=== PATIENT | male | born 1960 | race Native Hawaiian/Other Pacific Islander ===

== ENCOUNTER 2016-11-23 13:45 | Emergency (ER) | payer OTHER ==
[~2016-11-23] VITALS: Ht 170.2 cm; Wt 99.0 kg
[~2016-11-23 13:45] MED LIST: DARV PO; NAPR550 PO; Z.0.UNKNOWN
[2016-11-23 13:46] VITALS: BP 142/97; PULSE 82; RESP 20; TEMP 98; O2SAT 96
[2016-11-23] MEDS ORDERED: CORT1SOL LEFT EAR (15:46)
--- NOTE | 2016-11-23 15:48 | PD ---
HPI Chief Complaint: ENT Complaint Time Seen by Provider: 15:47 Travel History International Travel<30 days: No Contact w/Intl Traveler<30days: No Traveled to known affect area: No History of Present Illness HPI 56-year-old male with history of hypertension, hyperlipidemia, depression presents to the emergency department for evaluation of left ear pain for 2-3 days. States that he feels as though his ear is swelling as well. States that the pain is radiating to the left side of his face. He denies any fever, chills , nausea, vomiting, hearing loss, cough or cold symptoms. No aggravating or alleviating factors. No prior treatment. No other complaints. PFSH Past Medical History Cardiovascular Problems: Yes (HTN) Diminished Hearing: No Hypertension: Yes Social History Alcohol Use: No Tobacco Use: Yes Substance Use: No Allergies-Medications (Allergen,Severity, Reaction): Coded Allergies: Penicillin (Verified Allergy, Severe, Anaphylaxis, 11/23/16) Reported Meds & Prescriptions Reported Meds & Active Scripts Active Cortisporin HC Otic Drops (Iceemcqy-Mctmqmemn-DZ Otic Drops) 3.5-10,000-1 Mg- Units-% Soln 4 Drop LEFT EAR QID 10 Days Darvocet-N 100 (Propoxyphene Napsylate/Acetam) Tab 1 Tab PO QIDPRN Anaprox Ds (Naproxen Sodium) 550 Mg Tab 1 Tab PO BIDPRN Reported Unknown Meds (Miscellaneous Medication) Misc Review of Systems Except as stated in HPI: all other systems reviewed are Neg Physical Exam Narrative GENERAL: Well-nourished and well-developed pleasant patient in no acute distress who is nontoxic appearing. SKIN: Warm and dry. HEAD: Normocephalic and atraumatic. No facial swelling. EYES: No injection, drainage, or hyphema noted. PERRLA. EOMI. ENT: No nasal drainage noted. Oropharynx is clear. Right ear canal and tympanic membrane is within normal limits. Left ear canal is swollen and erythematous with tenderness to palpation, I am able to view the left tympanic membrane which is within normal limits. No mastoid tenderness. NECK: Supple and the trachea is midline. No lymphadenopathy is noted throughout the cervical chains. CARDIOVASCULAR: Regular rate and rhythm. RESPIRATORY: Breath sounds are equal bilaterally with no accessory muscle use, wheezing, rhonchi, or crackles. NEUROLOGICAL: Awake, alert, and oriented. Normal speech and gait. Cranial nerves are grossly intact. Data Data Last Documented VS Vital Signs Date Time Temp Pulse Resp B/P Pulse Ox O2 Delivery O2 Flow Rate FiO2 11/23/16 13:46 98.0 82 20 142/97 96 Room Air MDM Medical Decision Making Medical Screen Exam Complete: Yes Emergency Medical Condition: Yes Differential Diagnosis Acute otitis media versus otitis externa versus URI versus less likely mastoiditis Narrative Course 56-year-old male presents to the emergency department for evaluation of left ear pain. Patient is afebrile, vital signs are stable. The patient has left otitis externa. I did place an ear wick into the left ear, patient tolerated well. He'll be prescribed Cortisporin otic drops. Discussed signs and symptoms of when to return to the emergency Department. Advised follow-up with his PCP. Patient verbalizes understanding and agreement with treatment plan. Diagnosis Primary Impression: Otitis externa of left ear Qualified Code: H60.332 - Acute swimmer's ear of left side Referrals: Primary Care Physician Patient Instructions: General Instructions, Otitis Externa (ED) Additional Instructions: Use ear drops as prescribed. Follow-up with your Primary Care Physician. Return to the ED for any acute worsening of symptoms. Med/Other Pt SpecificInfo: Prescription(s) given Scripts Gdmchncp-Thmfuazvs-PM Otic Drops (Cortisporin HC Otic Drops)3.5-10,000-1 Mg- Units-% Soln4 Drop LEFT EAR QID 10 Days Ref 0 Prov:Stephanie Niño MD 11/23/16 Disposition: 01 DISCHARGE HOME Condition: Stable Radha Camarena Nov 23, 2016 15:48
== END 2016-11-23 16:04 | disposition home or self-care (01) ==
LOC: NEPB 13:45
DX: H60.332 Swimmer's ear, left ear (principal)
CPT/HCPCS: 99282

== ENCOUNTER 2017-02-03 18:04 | Emergency (ER) | payer OTHER ==
[~2017-02-03] VITALS: Ht 170.2 cm; Wt 97.0 kg
[~2017-02-03 18:04] MED LIST changes: +CORT1SOL LEFT EAR
[2017-02-03 18:06] VITALS: BP 146/94; PULSE 83; RESP 14; TEMP 98.5; O2SAT 91
[2017-02-03 18:14] VITALS: O2SAT 97
--- NOTE | 2017-02-03 18:16 | PD ---
Physical Exam Time Seen by Provider: 18:13 Narrative 56 y/o male presents for evaluation of bilateral ear pain for 10 days. He reports his pcp rx abx with no improvement. vital signs reviewed. Seen at triage desk. Awaiting bed placement. Data Data Last Documented VS Vital Signs Date Time Temp Pulse Resp B/P Pulse Ox O2 Delivery O2 Flow Rate FiO2 02/03/17 18:06 98.5 83 14 146/94 91 MDM Medical Record Reviewed: Yes Supervised Visit with YG: Marcos Hernandes February 03, 2017 18:16
[2017-02-03] MEDS ORDERED: IBUP800T23 PO (19:00)
[2017-02-03] MEDS ORDERED: CORT1SOL RIGHT EAR (19:00)
[2017-02-03] MEDS ORDERED: CIPR500T2 PO (19:00)
--- NOTE | 2017-02-03 19:00 | PD ---
HPI Chief Complaint: ENT Complaint Time Seen by Provider: 18:51 Travel History International Travel<30 days: No Contact w/Intl Traveler<30days: No Traveled to known affect area: No History of Present Illness HPI 56-year-old male resents to the emergency Department with complaint of bilateral ear pain 10 days, right worse than left. He was seen by a provider 2 days ago and was given prescriptions for azithromycin and antibiotic eardrops. He says the prescriptions are not helping his ear pain and infection. Since the antibiotic eardrops make his ear burn and the symptoms worse. Reports taking oral azithromycin with no improvement in symptoms. Denies fever, vomiting. Denies nasal congestion, sore throat, cough. Says he had the same ear infection before in the other ear, and was seen here and given antibiotics that helped his symptoms. Allergies to penicillin. Has no other medical complaints. No other modifying factors or associated signs and symptoms. PFSH Past Medical History Cardiovascular Problems: Yes (HTN) Diminished Hearing: No Hypertension: Yes Social History Alcohol Use: No Tobacco Use: Yes Substance Use: No Allergies-Medications (Allergen,Severity, Reaction): Coded Allergies: Penicillin (Verified Allergy, Severe, Anaphylaxis, 11/23/16) Reported Meds & Prescriptions Reported Meds & Active Scripts Active Ciprofloxacin (Ciprofloxacin HCl) 500 Mg Tab 500 Mg PO BID 10 Days Ibuprofen 800 Mg Tab 800 Mg PO Q6HR PRN Cortisporin HC Otic Drops (Wnorlqgh-Ukghvxhvp-DY Otic Drops) 3.5-10,000-1 Mg- Units-% Soln 4 Drop RIGHT EAR QID 10 Days Darvocet-N 100 (Propoxyphene Napsylate/Acetam) Tab 1 Tab PO QIDPRN Anaprox Ds (Naproxen Sodium) 550 Mg Tab 1 Tab PO BIDPRN Reported Unknown Meds (Miscellaneous Medication) Misc Review of Systems Except as stated in HPI: all other systems reviewed are Neg Physical Exam Narrative GENERAL: Well-nourished, well-developed male patient, in no acute distress; afebrile, nontoxic-appearing SKIN: Warm and dry. No rash. HEAD: Atraumatic. Normocephalic. EYES: Pupils equal and round at 3 mm with brisk reaction. No scleral icterus. No injection or drainage. PERRLA. EARS: Left pinnae and external canals appear within normal limits. Right inner ear canal is edematous and erythematous, consistent with otitis externa; I am able to visualize the tympanic membrane and it is without erythema, loss of landmarks, dullness, perforation. Left tympanic membranes with erythema and bulging; without dullness or perforation. ENT: Mucosa pink and moist. Pharynx without erythema; without edema or exudates. No uvular edema. No uvular, palatal, or tonsillar deviation. Airway patent. NECK: Trachea midline. No lymphadenopathy. CARDIOVASCULAR: Regular rate. RESPIRATORY: No accessory muscle use GASTROINTESTINAL: Rounded. MUSCULOSKELETAL: No obvious deformities. No clubbing. No cyanosis. No edema. NEUROLOGICAL: Awake and alert. Oriented 3. No obvious cranial nerve deficits. Motor grossly within normal limits. Normal speech. Moves all extremities. 5/5 strength to all extremities. PSYCHIATRIC: Appropriate mood and affect; insight and judgment normal. Data Data Last Documented VS Vital Signs Date Time Temp Pulse Resp B/P Pulse Ox O2 Delivery O2 Flow Rate FiO2 02/03/17 18:14 97 02/03/17 18:06 98.5 83 14 146/94 [facility] [place] Medical Decision Making Medical Screen Exam Complete: Yes Emergency Medical Condition: Yes Medical Record Reviewed: Yes Differential Diagnosis Otitis media, otitis externa, foreign body, cerumen impaction, treatment failure Narrative Course 56-year-old male that is presently being treated for otitis externa with azithromycin and antibiotic eardrops without symptom improvement 2 days. Patient is afebrile and nontoxic-appearing. He denies fever, vomiting. Denies other upper respiratory symptoms. Patient was seen here back in November with left otitis externa and I will prescribe the antibiotics that were previously prescribed secondary to patient stating he had symptom improvement with the previous antibiotics prescribed. Instructed patient to stop current antibiotics. Ibuprofen, Ciprofloxacin and Cortisporin HC otic drops prescribed for home. Instructed patient to follow up with ENT. Patient verbalizes understanding and agreement with treatment plan. Patient is medically cleared and stable for discharge. Discussed reasons to return to the emergency department. Instructed patient to follow up with primary care provider. Patient agrees with treatment plan. The patients vital signs are stable and the patient is stable for outpatient follow-up and treatment. Patient discharged home, stable and in no acute distress. Diagnosis Primary Impression: Otitis externa of right ear Qualified Code: H60.91 - Otitis externa of right ear, unspecified chronicity, unspecified type Referrals: Ear / Nose / Throat Specialist Primary Care Physician Patient Instructions: General Instructions, Otitis Externa (ED) Additional Instructions: Take antibiotics as prescribed and complete full course Ibuprofen or Tylenol as directed and as needed to reduce pain and fever Avoid getting water in the ears Do not put anything in the ears; including Q-tips Follow-up with your business economist Return to the emergency department immediately with worsening of symptoms Med/Other Pt SpecificInfo: Prescription(s) given, Med Stopped Scripts Ciprofloxacin 500 Mg [id number] Mg PO BID 10 Days Ref 0 Prov:Radha Hitchcock 02/03/17 Ibuprofen 800 Mg Nyv158 Mg PO Q6HR PRN (PAIN) #30 TAB Ref 0 Prov:Radha Hitchcock 02/03/17 Uynodfnj-Ardehdhes-PW Otic Drops (Cortisporin HC Otic Drops)3.5-10,000-1 Mg- Units-% Soln4 Drop RIGHT EAR QID 10 Days Ref 0 Prov:Radha Hitchcock 02/03/17 Disposition: 01 DISCHARGE HOME Condition: Stable Radha Hitchcock February 03, 2017 19:00
== END 2017-02-03 19:46 | disposition home or self-care (01) ==
LOC: NEPK 18:04
DX: H60.91 Unspecified otitis externa, right ear (principal); H92.02 Otalgia, left ear; I10 Essential (primary) hypertension; Z72.0 Tobacco use; Z86.79 Personal history of other diseases of the circulatory system
CPT/HCPCS: 99282

== ENCOUNTER 2017-03-09 00:18 | Observation (INO) | payer OTHER ==
[~2017-03-09] VITALS: Ht 170.2 cm; Wt 95.0 kg
[2017-03-09] VITALS (12 sets, daily range): BP systolic 96–166; BP diastolic 66–106; PULSE 61–86; RESP 14–20; TEMP 97.7–98.5; O2SAT 94–100
[~2017-03-09 00:18] MED LIST changes: +CIPR500T2 PO; -CORT1SOL LEFT EAR; +CORT1SOL RIGHT EAR; +IBUP800T23 PO
[2017-03-09] MEDS ORDERED: NITROGLYCERIN 0.4 MG SL 25 TABS/BTL SL ONE (00:30)
[2017-03-09] MEDS ORDERED: ASPIRIN 81 MG CHEW TAB CHEW ONE (00:30)
[2017-03-09] MEDS ORDERED: SODIUM CHLORIDE 0.9% FLUSH 10 ML FLUSH IVF PRN (00:30)
[2017-03-09] MEDS ORDERED: LISI20TA PO (00:42)
[2017-03-09] MEDS ORDERED: SIMV10TA PO (00:42)
[2017-03-09] MEDS ORDERED: CYCL1TAB29 PO (00:42)
[2017-03-09] MEDS ORDERED: ASPI81CH CHEW (00:42)
--- NOTE | 2017-03-09 00:48 | RADRPT ---
EXAM DATE/TIME: 03/09/2017 00:44 [facility] COMPARISON: No previous studies available for comparison. INDICATIONS : Chest pain. MEDICAL HISTORY : None. SURGICAL HISTORY : None. ENCOUNTER: Initial ACUITY: 1 day PAIN SCORE: 0/10 LOCATION: Bilateral chest FINDINGS: A single view of the chest demonstrates the lungs to be symmetrically aerated without evidence of mas s, infiltrate or effusion. The cardiomediastinal contours are unremarkable. Osseous structures are intact. CONCLUSION: Normal examination. Robert Escalante MD on March 09, 2017 at 0:47 Board Certified Radiologist. This report was verified electronically.
[2017-03-09 00:59] LABS: AUTOMATED NEUTROPHIL # 2.7 TH/MM3 (1.8-7.7); BASOPHIL # 0.1 TH/MM3 (0-0.2); BASOPHIL % 0.8 % (0.0-2.0); EOSINOPHIL # 0.1 TH/MM3 (0-0.4); EOSINOPHIL % 1.5 % (0.0-4.0); HEMATOCRIT 45.1 % (39.0-51.0); HEMO FLAGS DIFF FINAL; LYMPH % 54.2 % (9.0-44.0); LYMPHOCYTE # 4.1 TH/MM3 (1.0-4.8); MEAN CELL VOLUME 82.9 FL (80.0-100.0); MEAN CORPUSCULAR HEMOGLOBIN 28.6 PG (27.0-34.0); MEAN CORPUSCULAR HGB CONC 34.5 % (32.0-36.0); NEUT % 35.5 % (16.0-70.0); PLATELET COUNT 198 TH/MM3 (150-450); RED BLOOD COUNT 5.44 MIL/MM3 (4.50-5.90); RED CELL DISTRIBUTION WIDTH 13.6 % (11.6-17.2); WHITE BLOOD COUNT 7.6 TH/MM3 (4.0-11.0)
[2017-03-09 01:10] LABS: APTT (PATIENT) 29.2 SEC (24.3-30.1); INTERNATIONAL NORMALIZED RATIO 0.9 RATIO; PROTHROMBIN TIME - PATIENT 10.3 SEC (9.8-11.6)
[2017-03-09] MEDS ORDERED: SODIUM CHLORID 0.9% 500 ML INJ 500 ML IV ONE (01:15)
[2017-03-09] MEDS ORDERED: ONDANSETRON HCL 4 MG/2 ML VIAL IV PUSH ONE (01:15)
[2017-03-09] MEDS ORDERED: MORPHINE SULFATE 4 MG/ML INJ IV PUSH ONE (01:15)
[2017-03-09 01:24] LABS: ALKALINE PHOSPHATASE 83 U/L (45-117); CREATINE KINASE 154 U/L (39-308); TOTAL BILIRUBIN ADULT 0.2 MG/DL (0.2-1.0)
[2017-03-09 01:47] LABS: ALT (GPT) 28 U/L (12-78); ANION GAP 3 MEQ/L (5-15); AST (GOT) 21 U/L (15-37); BICARBONATE 30.2 MEQ/L (21.0-32.0); BLOOD UREA NITROGEN 11 MG/DL (7-18); CHLORIDE 106 MEQ/L (98-107); GLOMERULAR FILTRATION RATE 67 ML/MIN (>89); MAGNESIUM 2.2 MG/DL (1.5-2.5); POTASSIUM 3.9 MEQ/L (3.5-5.1); SODIUM (NA) 139 MEQ/L (136-145)
--- NOTE | 2017-03-09 01:52 | RADRPT ---
EXAM DATE/TIME: 03/09/2017 01:38 [facility] COMPARISON: No previous studies available for comparison. INDICATIONS : Left upper quadrant pain. ORAL CONTRAST: No oral contrast ingested. RADIATION DOSE: 14.29 CTDIvol (mGy) MEDICAL HISTORY : Hypertension. SURGICAL HISTORY : None. ENCOUNTER: Initial ACUITY: 1 day PAIN SCALE: 8/10 LOCATION: Left upper quadrant TECHNIQUE: Volumetric scanning of the abdomen and pelvis was performed. Using automated exposure control and ad justment of the mA and/or kV according to patient size, radiation dose was kept as low as reasonably achievable to obtain optimal diagnostic quality images. FINDINGS: LOWER LUNGS: The visualized lower lungs are clear. LIVER: Homogeneous density without lesion. There is no dilation of the biliary tree. Peripherally calcified gallstone in a noninflamed gallbladder. SPLEEN: Normal size without lesion. PANCREAS: Within normal limits. KIDNEYS: Normal in size and shape. There is no mass, stone, or hydronephrosis. ADRENAL GLANDS: Within normal limits. VASCULAR: There is no aortic aneurysm. BOWEL/MESENTERY: The stomach, small bowel, and colon demonstrate no acute abnormality. There is no free intraperitone al air or fluid. ABDOMINAL WALL: Within normal limits. RETROPERITONEUM: There is no lymphadenopathy. BLADDER: No wall thickening or mass. REPRODUCTIVE: Within normal limits. INGUINAL: There is no lymphadenopathy or hernia. MUSCULOSKELETAL: Within normal limits for patient age. CONCLUSION: Normal examination except for peripherally calcified gallstone in a noninflamed gallbladder. Robert Escalante MD on March 09, 2017 at 1:50 Board Certified Radiologist. This report was verified electronically.
--- NOTE | 2017-03-09 01:55 | PD ---
HPI Chief Complaint: Chest Pain Time Seen by Provider: 00:29 Travel History International Travel<30 days: No Contact w/Intl Traveler<30days: No Traveled to known affect area: No History of Present Illness HPI The patient is a 56 year old male who presents to the [facility] emergency department with a history of midepigastric abdominal pain associated with left lower chest pain that began at approximately 7:30 PM this evening. The patient reports that his last meal was at approximate 5:30 PM. He reports that the pain is similar to when he had a gallstone 10 months ago diagnosed in [place]. The patient reports that initially the pain was a 5-6 out of 10 in severity, however it is gradually worsened and been constant. He reports that the pain is now 9 out of 10 in severity. He reports that the pain is an aching sensation. He denies having any shortness of breath. He denies having any nausea or vomiting. He denies having any diaphoresis. He reports that he last moved his bowels earlier today. He reports that he has had some constipation and moved his bowels last prior to this 4-5 days ago. The patient reports that he is attempting to quit smoking. He reports that today he only had 1 cigarette , yesterday he had 6 cigarettes. The patient denies having any history of heart disease. He does have a history of high blood pressure. He denies having any prior history of diabetes or hyperlipidemia. The patient cannot recall the name of his primary care physician. Review of systems, the patient denies any recent fevers, cough, congestion, neck pain, abdominal pain, vomiting , diarrhea, urinary symptoms, or neurologic symptoms. [facility] Past Medical History Narrative Medical The patient's past medical history is significant for hypertension, tobacco use. Cardiovascular Problems: Yes (HTN) High Cholesterol: Yes Diminished Hearing: No Hypertension: Yes Medical other: Yes (chronic back and neck pain.) Immunizations Current: Yes Past Surgical History Narrative Surgical The patient's past surgical history is significant for brain surgery diagnosis of benign mass. Social History Alcohol Use: No Tobacco Use: Yes (1-6 cigarettes daily) Substance Use: No Allergies-Medications (Allergen,Severity, Reaction): Coded Allergies: Penicillin (Verified Allergy, Severe, Anaphylaxis, 03/09/17) Reported Meds & Prescriptions Reported Meds & Active Scripts Active Reported Flexeril (Cyclobenzaprine HCl) 10 Mg Tab 10 Mg PO HS Lisinopril-Hctz 20-12.5 Mg Tab 1 Tab PO DAILY Aspirin 81 Mg Chew 81 Mg CHEW DAILY Simvastatin 10 Mg Tab 10 Mg PO DAILY Review of Systems Except as stated in HPI: all other systems reviewed are Neg General / Constitutional: No: Fever Eyes: No: Visual changes HENT: No: Headaches Cardiovascular: Positive: Chest Pain or Discomfort, No: Dyspnea on exertion Respiratory: No: Cough, Shortness of Breath Gastrointestinal: Positive: Abdominal Pain, Constipation, Changes in Bowel Habits, No: Nausea, Vomiting, Diarrhea, Hematemesis, Hematochezia, Indigestion Genitourinary: No: Urgency, Frequency, Dysuria, Flank Pain Musculoskeletal: No: Pain Skin: No Rash Neurologic: No: Weakness, Focal Abnormalities, Coordination Problem, Change in Mentation, Slurred Speech, Sensory Disturbance Psychiatric: No: Depression, Disorder of Thought Endocrine: No: Polydipsia Hematologic/Lymphatic: No: Easy Bruising Physical Exam Narrative General: The patient is a well-developed well-nourished male in no acute distress. Head and Neck exam: Head is normocephalic atraumatic. Eyes: EOMI, pupils are equal round and reactive to light. Nose: Midline septum with pink mucous membranes Mouth: Dentition unremarkable. Moist mucus membranes. Posterior oropharynx is not erythematous. No tonsillar hypertrophy. Uvula midline. Airway patent. Neck: No palpable lymphadenopathy. No nuchal rigidity. No thyromegaly. Cardiovascular: Regular rate and rhythm without murmurs, gallops, or rubs. No pulse deficit to the extremities on simultaneous auscultation and palpation of his radial artery. Lungs: Clear to auscultation bilaterally. No wheezes, rhonchi, or rales. Abdomen: Soft, with tenderness on palpation of McBurney's point. No tenderness on palpation of the lower quadrants of the abdomen. The patient has some discomfort on palpation of the right upper quadrant with a negative Teixeira's sign. No guarding, rebound, or rigidity. Normal bowel sounds are audible. No tenderness on palpation of McBurney's point. Extremities: No clubbing, cyanosis, or edema. 2+ pulses in all 4 extremities. No calf tenderness on palpation. Back: No costovertebral angle tenderness to palpation. Neurologic Exam: Grossly nonfocal. Skin Exam: No rash noted. Intact skin that is warm and dry. Data Data Last Documented VS Vital Signs Date Time Temp Pulse Resp B/P Pulse Ox O2 Delivery O2 Flow Rate FiO2 03/09/17 02:30 63 14 108/77 03/09/17 01:31 100 Room Air 03/09/17 00:26 98.3 Orders Electrocardiogram (03/09/17 00:30) B-Type Natriuretic Peptide (03/09/17 00:30) Ckmb (Isoenzyme) Profile (03/09/17 00:30) Complete Blood Count With Diff (03/09/17 00:30) Comprehensive Metabolic Panel (03/09/17 00:30) Magnesium (Mg) (03/09/17 00:30) Prothrombin Time / Inr (Pt) (03/09/17:30) Act Partial Throm Time (Ptt) (03/09/17 00:30) Troponin I (03/09/17 00:30) Lipase (03/09/17 00:30) Chest, Single Ap (03/09/17 00:30) Ecg Monitoring (03/09/17 00:30) Bilateral Bp Monitoring (03/09/17 00:30) Iv Access Insert/Monitor (03/09/17 00:30) Oximetry (03/09/17 00:30) Oxygen Administration (03/09/17 00:30) Sodium Chloride 0.9% Flush (Ns Flush) (03/09/17 00:30) Aspirin Chew (Aspirin Chew) (03/09/17 00:30) Nitroglycerin Sl (Nitrostat Sl) (03/09/17 00:30) Morphine Inj (Morphine Inj) (03/09/17 01:15) Ondansetron Inj (Zofran Inj) (03/09/17 01:15) Sodium Chlorid 0.9% 500 Ml Inj (Ns 500 M (03/09/17 01:15) Ct Abd/Pel W/O Iv Contrast (03/09/17 01:08) CKMB (03/09/17 00:30) CKMB% (03/09/17 00:30) Pantoprazole Inj (Protonix Inj) (03/09/17 02:30) Nitroglycerin 2% Oint (Nitroglycerin 2% (03/09/17 02:30) Admit Order (Ed Use Only) (03/09/17 02:50) Activity Bed Rest With Brp (03/09/17 02:51) Vital Signs (Adult) Q4H (03/09/17 02:51) Cardiac Rhythm .As Directed (03/09/17 02:51) Notify Dr: Other .PRN (03/09/17 02:51) Notify DrClaudy Parameters (03/09/17 02:51) Resp Oxygen Nasal Cannula (03/09/17 ) Ckmb (Isoenzyme) Profile (03/09/17 03:30) Ckmb (Isoenzyme) Profile (03/09/17 06:30) Troponin I (03/09/17 03:30) Troponin I (03/09/17 06:30) Electrocardiogram (03/09/17 03:30) Electrocardiogram (03/09/17 06:30) ^ Obtain (03/09/17 02:51) Sodium Chloride 0.9% Flush (Ns Flush) (03/09/17 03:00) Sodium Chloride 0.9% Flush (Ns Flush) (03/09/17 09:00) Acetaminophen (Tylenol) (03/09/17 03:00) Ondansetron Inj (Zofran Inj) (03/09/17 03:00) Pantoprazole (Protonix) (03/09/17 09:00) Cognos Lead / Telemetry ABHIJEET.Q8H (03/09/17 02:51) Labs Laboratory Tests Test 03/09/17 00:30 White Blood Count 7.6 TH/MM3 Red Blood Count 5.44 MIL/MM3 Hemoglobin 15.6 GM/DL Hematocrit 45.1 % Mean Corpuscular Volume 82.9 FL Mean Corpuscular Hemoglobin 28.6 PG Mean Corpuscular Hemoglobin 34.5 % Concent Red Cell Distribution Width 13.6 % Platelet Count 198 TH/MM3 Mean Platelet Volume 8.4 FL Neutrophils (%) (Auto) 35.5 % Lymphocytes (%) (Auto) 54.2 % Monocytes (%) (Auto) 8.0 % Eosinophils (%) (Auto) 1.5 % Basophils (%) (Auto) 0.8 % Neutrophils # (Auto) 2.7 TH/MM3 Lymphocytes # (Auto) 4.1 TH/MM3 Monocytes # (Auto) 0.6 TH/MM3 Eosinophils # (Auto) 0.1 TH/MM3 Basophils # (Auto) 0.1 TH/MM3 CBC Comment DIFF FINAL Differential Comment Prothrombin Time 10.3 SEC Prothromb Time International 0.9 RATIO Ratio Activated Partial 29.2 SEC Thromboplast Time Sodium Level 139 MEQ/L Potassium Level 3.9 MEQ/L Chloride Level 106 MEQ/L Carbon Dioxide Level 30.2 MEQ/L Anion Gap 3 MEQ/L Blood Urea Nitrogen 11 MG/DL Creatinine 1.13 MG/DL Estimat Glomerular Filtration 67 ML/MIN Rate Random Glucose 102 MG/DL Calcium Level 8.5 MG/DL Magnesium Level 2.2 MG/DL Total Bilirubin 0.2 MG/DL Aspartate Amino Transf 21 U/L (AST/SGOT) Alanine Aminotransferase 28 U/L (ALT/SGPT) Alkaline Phosphatase 83 U/L Total Creatine Kinase 154 U/L Creatine Kinase MB 1.0 NG/ML Troponin I LESS THAN 0.02 NG/ML B-Type Natriuretic Peptide 11 PG/ML Total Protein 7.0 GM/DL Albumin 3.8 GM/DL Lipase 178 U/L MDM Medical Decision Making Medical Screen Exam Complete: Yes Emergency Medical Condition: Yes Medical Record Reviewed: Yes Interpretation(s) Last Impressions Abdomen/Pelvis CT 03/09/17 0108 Signed Impressions: Service Date/Time: Thursday, March 09, 2017 01:38 - CONCLUSION: Normal examination except for peripherally calcified gallstone in a noninflamed gallbladder. Robert Escalante MD Chest X-Ray 03/09/17 0030 Signed Impressions: Service Date/Time: Thursday, March 09, 2017 00:44 - CONCLUSION: Normal examination. Robert Escalante MD Myocardial Perfusion Scan Nuc Med 03/09/17 0000 Signed Impressions: Service Date/Time: Thursday, March 09, 2017 09:22 - CONCLUSION: 1. No evidence of stress-induced ischemia. 2. Intact wall motion with 55%% ejection fraction. RISK CATEGORY: Low (<1%% Annual Mortality Rate) Jose Nicolas MD Differential Diagnosis Biliary colic, versus acute pancreatitis, versus peptic ulcer disease, versus acid reflux, versus acute coronary syndrome Narrative Course During the course of the patients emergency department visit, the patients history, examination, and differential diagnosis were reviewed with the patient. The patient had IV access obtained and blood work sent for analysis. The patient was placed on a director of cardiac rehabilitation with oximetry and blood pressure monitoring. An EKG was done on arrival. The patient's EKG shows a sinus rhythm heart rate of 65, QRS duration is 110 ms, QTC 388 ms with T waves inverted in V1, V2, no acute ST segment elevation or depression noted. A CT scan of the abdomen and pelvis was ordered. The patient was initially provided aspirin 162 mg by mouth 1, nitroglycerin sublingual 1, morphine formal grams IV, Zofran 4 mg IV. Normal saline a 500 mL bolus 1 was administered. The patients laboratory studies were reviewed and remarkable for white count is 7.6, hemoglobin 15.6, platelets 198 with 54.2 lymphocytes, CMP is remarkable for an anion gap of 3, GFR 67, initial set of cardiac enzymes are negative, lipase 178, BNP is 11, PT PTT within normal limits. Radiology studies were reviewed and remarkable for a chest x-ray that shows no acute abdomen on it. A CT scan of the abdomen and pelvis that shows a normal examination except for a peripherally calcified gallstone and a noninflamed gallbladder. The patient was agreeable with the plan to admit him to the chest pain center for rule out serial cardiac enzyme protocol and stress testing to follow. The patients results were discussed with the patient, including the plan of care. I explained that further testing and/ or monitoring is indicated based on the patients history, examination, and/ or laboratory findings. Therefore, I recommended admission for additional evaluation. The patient expressed understanding and was agreeable with this plan. The patient was admitted to the hospital in stable condition and sent to a bed under the care of the chest pain center. Diagnosis Primary Impression: Abdominal pain Qualified Code: R10.13 - Epigastric pain Additional Impression: Chest pain, rule out acute myocardial infarction Admitting Information Admitting Physician Requests: Anahi Ochoa MD Mar 09, 2017 01:55
[2017-03-09] MEDS ORDERED: NITROGLYCERIN 2% OINT 1 GM PACKET TOPICAL ONE (02:30)
[2017-03-09] MEDS ORDERED: PANTOPRAZOLE SODIUM 40 MG VIAL IV PUSH ONE (02:30)
[2017-03-09] MEDS ORDERED: SODIUM CHLORIDE 0.9% FLUSH 10 ML FLUSH IV FLUSH PRN (03:00)
[2017-03-09] MEDS ORDERED: ACETAMINOPHEN 500 MG CPLT PO PRN (03:00)
[2017-03-09] MEDS ORDERED: ONDANSETRON HCL 4 MG/2 ML VIAL IV PRN (03:00)
[2017-03-09 04:34] LABS: CREATINE KINASE 123 U/L (39-308)
[2017-03-09 04:47] LABS: CKMB 0.9 NG/ML (0.5-3.6)
[2017-03-09 06:45] LABS: CREATINE KINASE 116 U/L (39-308)
[2017-03-09 06:58] LABS: CKMB 1.2 NG/ML (0.5-3.6)
[2017-03-09] MEDS ORDERED: SODIUM CHLORIDE 0.9% FLUSH 10 ML FLUSH IV FLUSH SCH (09:00)
[2017-03-09] MEDS ORDERED: PANTOPRAZOLE SOD 40 MG DELAYED RELEASE TAB PO SCH (09:00)
--- NOTE | 2017-03-09 09:03 | HHI.HP ---
HPI Primary Care Physician Emigdio Delgado MD Chief Complaint Chest and abdominal pain History of Present Illness This is a 56-year-old male that presents to ED complaining of chest and abdominal discomfort that began yesterday. It lasted 3-4 hours. He states the following resolved after getting IV morphine in the ED. States she's had issues of this in the past and was related to a calcified gallstone. He still has his gallbladder. Cannot recall prior stress testing. He had no nausea or vomiting. Denies diarrhea or constipation. Denies blood in stool. Denies shortness of breath or diaphoresis. Denies recent travel. Review of Systems General: Patient denies fevers, chills recent, and recent travel HEENT: Patient denies headache, sore throat, difficulty swallowing. Cardiovascular: Has the chest discomfort as mentioned above. Denies sensation of heart beating rapidly or irregularly. No syncope. Denies diaphoresis. Respiratory: Denies shortness of breath or inspirational chest discomfort. Denies coughing wheezing or hemoptysis. GI: He generalized abdominal pain for 3-4 hours yesterday. States he has had this before and it was related to a calcified gallstone. Patient denies nausea , vomiting, diarrhea, bloody stools. Musculoskeletal: Patient denies joint pain or edema. Denies calf pain or edema. Neurovascular: Patient denies numbness, tingling, weakness in extremities. Denies headache. Endocrine: Denies polyuria and polydipsia. Hematologic: Denies easy bruising. Skin: Denies rash or itching. Past Family Social History Allergies: Coded Allergies: Penicillin (Verified Allergy, Severe, Anaphylaxis, 03/09/17) Past Medical History Hypertension, hyperlipidemia, tobacco abuse, calcified gallstone. Denies diabetes and known CAD. Past Surgical History Noncontributory. Reported Medications Reported Meds & Active Scripts Active Reported Flexeril (Cyclobenzaprine HCl) 10 Mg Tab 10 Mg PO HS Lisinopril-Hctz 20-12.5 Mg Tab 1 Tab PO DAILY Aspirin 81 Mg Chew 81 Mg CHEW DAILY Simvastatin 10 Mg Tab 10 Mg PO DAILY Active Ordered Medications Current Medications Medications (Trade) Dose Ordered Sig/Len Route Start Time Stop Time Status Last Admin (NS Flush) 2 ml UNSCH PRN IVF 03/09/17 00:30 (NS Flush) 2 ml UNSCH PRN IV FLUSH 03/09/17 03:00 (NS Flush) 2 ml BID IV FLUSH 03/09/17 09:00 (Tylenol) 500 mg Q4H PRN PO 03/09/17 03:00 (Zofran Inj) 4 mg Q6H PRN IV 03/09/17 03:00 (Protonix) 40 mg DAILY PO 03/09/17 09:00 Family History Denies family history of CAD. Social History Patient smokes about a quarter pack of cigarettes daily. Denies alcohol or illicit drugs. Physical Exam Vital Signs Vital Signs Date Time Temp Pulse Resp B/P Pulse Ox O2 Delivery O2 Flow Rate FiO2 03/09/17 07:28 97.7 61 17 109/66 97 03/09/17 06:08 97.8 77 18 101/67 99 03/09/17 04:57 94 21 03/09/17 04:30 72 16 96/68 96 Room Air 03/09/17 03:45 16 03/09/17 03:32 14 03/09/17 03:29 86 16 105/73 03/09/17 02:30 63 14 108/77 03/09/17 01:31 68 16 136/98 100 Room Air 03/09/17 00:36 100 Room Air 03/09/17 00:36 164/106 134/87 03/09/17 00:30 100 Room Air 03/09/17 00:26 98.3 68 20 164/106 100 03/09/17 00:22 97.9 72 16 166/96 100 Physical Exam GENERAL: This is a well-nourished, well-developed patient, in no apparent distress. Patient speaks in clear complete sentences. Patient is pleasant. HEENT: Head is atraumatic and normocephalic. Neck is supple without lymphadenopathy and trachea is midline. No JVD or carotid bruits. CARDIOVASCULAR: Regular rate and rhythm without murmurs, gallops, or rubs. RESPIRATORY: Clear to auscultation. Breath sounds equal bilaterally. No wheezes , rales, or rhonchi. Chest wall is nontender. No use of accessory muscles. GASTROINTESTINAL: Abdomen is nontender during this examination but he states that it was yesterday, abdomen is nondistended. Abdomen soft. No obvious pulsatile mass or bruit. No CVA tenderness. Strong femoral pulses bilaterally. Normal bowel sounds in all quadrants. MUSCULOSKELETAL: Patient is moving upper and lower extremities freely. No calf tenderness or edema, no Homans sign. Strong pulses in upper and lower extremities. NEUROLOGICAL: Patient is alert and oriented. Cranial nerves 2-12 are grossly intact. No focal deficits and speech is clear. SKIN: No rash and turgor is normal. Laboratory Laboratory Tests Test 03/09/17 03/09/17 03/09/17 00:30 03:40 06:02 White Blood Count 7.6 Red Blood Count 5.44 Hemoglobin 15.6 Hematocrit 45.1 Mean Corpuscular Volume 82.9 Mean Corpuscular Hemoglobin 28.6 Mean Corpuscular Hemoglobin 34.5 Concent Red Cell Distribution Width 13.6 Platelet Count 198 Mean Platelet Volume 8.4 Neutrophils (%) (Auto) 35.5 Lymphocytes (%) (Auto) 54.2 Monocytes (%) (Auto) 8.0 Eosinophils (%) (Auto) 1.5 Basophils (%) (Auto) 0.8 Neutrophils # (Auto) 2.7 Lymphocytes # (Auto) 4.1 Monocytes # (Auto) 0.6 Eosinophils # (Auto) 0.1 Basophils # (Auto) 0.1 CBC Comment DIFF FINAL Differential Comment Prothrombin Time 10.3 Prothromb Time International 0.9 Ratio Activated Partial 29.2 Thromboplast Time Sodium Level 139 Potassium Level 3.9 Chloride Level 106 Carbon Dioxide Level 30.2 Anion Gap 3 Blood Urea Nitrogen 11 Creatinine 1.13 Estimat Glomerular Filtration 67 Rate Random Glucose 102 Calcium Level 8.5 Magnesium Level 2.2 Total Bilirubin 0.2 Aspartate Amino Transf 21 (AST/SGOT) Alanine Aminotransferase 28 (ALT/SGPT) Alkaline Phosphatase 83 Total Creatine Kinase 154 123 116 Creatine Kinase MB 1.0 0.9 1.2 Troponin I LESS THAN 0.02 LESS THAN 0.02 LESS THAN 0.02 B-Type Natriuretic Peptide 11 Total Protein 7.0 Albumin 3.8 Lipase 178 Result Diagram: 03/09/172903/09/1729 Imaging Last 48 hours Impressions Abdomen/Pelvis CT 03/09/17107 Signed Impressions: Service Date/Time: Thursday, March 09, 2017 01:38 - CONCLUSION: Normal examination except for peripherally calcified gallstone in a noninflamed gallbladder. Robert Escalante MD Chest X-Ray 03/09/1729 Signed Impressions: Service Date/Time: Thursday, March 09, 2017 00:44 - CONCLUSION: Normal examination. Robert Escalante MD Course EKGs have sinus rhythm with nonspecific anterior T-wave changes. Assessment and Plan Assessment and Plan * Chest pain: Patient has had serial cardiac enzymes and EKGs for ruling out purposes. He has been seen by Dr. Wilkinson cardiology in the chest pain center and will undergo a nuclear ETT. He'll be discharged home if his nuclear ETT is nonischemic. * Calcified gallstone: Patient states this is chronic. Should follow-up with his physician on an outpatient basis. * Hypertension: Continue current medication. * Hyperlipidemia: Continue current medication. * Tobacco abuse: Patient has been counseled on the importance of smoking cessation. Patient is stable at this time. He is agreeable to this plan. Getachew Blunt Mar 09, 2017 09:03
[2017-03-09] MEDS ORDERED: REGADENOSON INJ 0.4 MG/5 ML SYR ONE (10:23)
--- NOTE | 2017-03-09 11:41 | RADRPT ---
EXAM DATE/TIME: 03/09/2017 09:22 [facility] COMPARISON: No previous studies available for comparison. INDICATIONS : Chest pain. Angina. DOSE: 25.8 mCi Tc99m Myoview at stress. 8.5 mCi Tc99m Myoview at rest. 0.4 mg Lexiscan STRESS SYMPTOMS: None. EJECTION FRACTION: 55% MEDICAL HISTORY : Hypertension. SURGICAL HISTORY : Brain mass removed. ENCOUNTER: Initial ACUITY: 1 day PAIN SCALE: 1/10 LOCATION: chest TECHNIQUE: The patient underwent pharmacologic stress with infusion of prescribed dose. Continuous ECG tracing was monitored during stress. Gated SPECT imaging was performed after stress and conventional SPECT i maging was performed at rest. The examination was performed on a SPECT/CT scanner, both attenuation and non-corrected datasets were reviewed. FINDINGS: DISTRIBUTION: The maximum perfused segment at stress is in the anterolateral wall. PERFUSION STUDY: The pattern of perfusion at stress is within normal limits with region of variation perfusion within 30%. The summed stress score zero. No evidence of redistribution.. GATED STUDY: There is intact wall motion and thickening without hypokinetic or dyskinetic segments. CONCLUSION: 1. No evidence of stress-induced ischemia. 2. Intact wall motion with 55% ejection fraction. RISK CATEGORY: Low (<1% Annual Mortality Rate) Jose Nicolas MD on March 09, 2017 at 11:36 Board Certified Radiologist. This report was verified electronically.
--- NOTE | 2017-03-09 12:12 | HHI.DCPOC ---
Discharge Care Plan Diagnosis: (1) Chest pain (2) Hypertension (3) Hyperlipidemia (4) Abdominal pain (5) Tobacco abuse Goals to Promote Your Health * To prevent worsening of your condition and complications * To maintain your health at the optimal level Directions to Meet Your Goals Take your medications as prescribed Follow your dietary instruction Follow activity as directed Keep your appointments as scheduled Take your immunizations and boosters as scheduled If your symptoms worsen call your PCP, if no PCP go to Urgent Care Center or Emergency Room Smoking is Dangerous to Your Health. Avoid second hand smoke Call the 24-hour hour crisis hotline for domestic abuse at Getachew Blunt Mar 09, 2017 12:12
--- NOTE | 2017-03-09 16:18 | EKG ---
Date Performed: 03/09/2017 Time Performed: 06:21:27 PTAGE: 56 years EKG: Sinus rhythm LOW QRS VOLTAGE IN EXTREMITY LEADS PATTERN CONSISTENT WITH PULMONARY DISEASE MODERATE T-WAVE ABNORMA LITY, CONSIDER ANTERIOR ISCHEMIA ABNORMAL ECG Since PREVIOUS TRACING , no significant change noted PREVIOUS TRACIN03/09/2017 06.20 DOCTOR: Gena Wilkinson Interpretating Date/Time 03/09/2017 16:15:56
--- NOTE | 2017-03-09 16:18 | EKG ---
Date Performed: 03/09/2017 Time Performed: 03:36:43 PTAGE: 56 years EKG: Sinus rhythm BORDERLINE LEFT AXIS DEVIATION MODERATE T-WAVE ABNORMALITY, CONSIDER ANTERIOR ISCHEMIA ABNORMAL ECG Since PREVIOUS TRACING , no significant change noted PREVIOUS TRACIN03/09/2017 00.28 DOCTOR: Gena Wilkinson Interpretating Date/Time 03/09/2017 16:16:36
--- NOTE | 2017-03-09 16:19 | EKG ---
Date Performed: 03/09/2017 Time Performed: 00:28:53 PTAGE: 56 years EKG: Sinus rhythm SEPTAL MYOCARDIAL INFARCTION ABNORMAL ECG Since PREVIOUS TRACING , no significant change noted PREVIOUS TRACIN09/13/2007 16.25 DOCTOR: Gena Wilkinson Interpretating Date/Time 03/09/2017 16:17:13
--- NOTE | 2017-03-09 16:19 | TR ---
Date Performed: 03/09/2017 Time Performed: 10:22:45 DOCTOR: Gena Wilkinson DRUG LIST: CLINICAL HISTORY: REASON FOR TEST: Angina REASON FOR ENDING: OBSERVATION: CONCLUSION: Lexiscan stress test was performed under standard four minute protocol. Radionuclid e was injected one minute prior to ending the test. No electrocardiographic abormalities were present to suggest ischemia. Nuclear imaging and interpretation are pending. COMMENTS:
== END 2017-03-09 15:01 | disposition home or self-care (01) ==
LOC: NEPC 00:18 → NEDA 02:52 → NEPFCDU 05:24
PROVIDERS: ADMIT Internal Medicine Interventional Cardiology; ATTEND Internal Medicine Interventional Cardiology
DX: R07.89 Other chest pain (principal); I10 Essential (primary) hypertension; E78.5 Hyperlipidemia, unspecified; K80.20 Calculus of gallbladder without cholecystitis without obstruction; F17.210 Nicotine dependence, cigarettes, uncomplicated; E78.00 Pure hypercholesterolemia, unspecified; M54.2 Cervicalgia; M54.9 Dorsalgia, unspecified; G89.29 Other chronic pain; Z79.82 Long term (current) use of aspirin; Z88.0 Allergy status to penicillin
CPT/HCPCS: 71010; 74176; 78452; 80053; 82550; 82552; 83690; 83735; 83880; 84484; 85025; 85610; 85730; 93005; 93017; 96361; 96374; 96375; 99285; A9502; C9113; G0378; J2270; J2405; J2785; J7040

== ENCOUNTER 2017-07-26 07:37 | Emergency (ER) | payer OTHER ==
[~2017-07-26] VITALS: Ht 170.2 cm; Wt 95.0 kg
[~2017-07-26 07:37] MED LIST changes: +ASPI81CH CHEW; -CIPR500T2 PO; -CORT1SOL RIGHT EAR; +CYCL1TAB29 PO; -DARV PO; -IBUP800T23 PO; +LISI20TA PO; -NAPR550 PO; +SIMV10TA PO; -Z.0.UNKNOWN
[2017-07-26 07:48] VITALS: BP 143/94; PULSE 72; RESP 17; TEMP 98; O2SAT 100
[2017-07-26] MEDS ORDERED: SODIUM CHLOR 0.9% 1000 ML INJ 1,000 ML IV SCH (08:04)
--- NOTE | 2017-07-26 08:08 | PD ---
HPI Chief Complaint: Abdominal Pain Time Seen by Provider: 07:53 Travel History International Travel<30 days: No Contact w/Intl Traveler<30days: No Traveled to known affect area: No History of Present Illness HPI The patient is a 57-year-old male who presents to the emergency department for right flank pain. The patient developed right flank pain this morning. The pain radiates from the right mid back to the right flank, to the right lower quadrant, and into the scrotal area. The pain is sharp, intermittent, associated with difficulty urinating. The patient denies any actual dysuria or hematuria. The patient does complain of nausea and vomiting secondary to the pain. He denies any diarrhea. The patient denies any history of previous abdominal surgeries. Symptoms are moderate, there are no alleviating or exacerbating factors. The patient denies any history nephrolithiasis. The patient does have a history of hypertension and hyperlipidemia. The patient is allergic to penicillin G. 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 Social History Alcohol Use: No Tobacco Use: Yes (1-6 cigarettes daily) Substance Use: No Allergies-Medications (Allergen,Severity, Reaction): Coded Allergies: penicillin G (Verified Allergy, Severe, Anaphylaxis, 07/26/17) Reported Meds & Prescriptions Reported Meds & Active Scripts Active Reported Lisinopril-Hctz 20-12.5 Mg Tab 1 Tab PO DAILY Aspirin 81 Mg Chew 81 Mg CHEW DAILY Simvastatin 10 Mg Tab 10 Mg PO DAILY Review of Systems Except as stated in HPI: all other systems reviewed are Neg General / Constitutional: No: Fever Cardiovascular: No: Chest Pain or Discomfort Respiratory: No: Shortness of Breath Gastrointestinal: Positive: Nausea, Vomiting, Abdominal Pain, No: Diarrhea Genitourinary: Positive: Flank Pain, Other (difficulty urinating), No: Dysuria , Hematuria Skin: No Rash Physical Exam Narrative GENERAL: Awake, alert, pleasant 57-year-old male who appears his stated age and is in no acute respiratory distress. He does appear in moderate pain. SKIN: Focused skin assessment warm/dry. HEAD: Atraumatic. Normocephalic. EYES: Pupils equal and round. No scleral icterus. No injection or drainage. ENT: No nasal bleeding or discharge. Mucous membranes pink and moist. NECK: Trachea midline. No JVD. CARDIOVASCULAR: Regular rate and rhythm. No murmur appreciated. RESPIRATORY: No accessory muscle use. Clear to auscultation. Breath sounds equal bilaterally. GASTROINTESTINAL: Abdomen soft, right flank tenderness. Minimal right lower quadrant pain. Back: Mild right CVA tenderness. MUSCULOSKELETAL: No obvious deformities. No clubbing. No cyanosis. No edema. NEUROLOGICAL: Awake and alert. No obvious cranial nerve deficits. Motor grossly within normal limits. Normal speech. PSYCHIATRIC: Appropriate mood and affect; insight and judgment normal. Data Data Last Documented VS Vital Signs Date Time Temp Pulse Resp B/P (MAP) Pulse Ox O2 Delivery O2 Flow Rate FiO2 07/26/17 08:30 14 07/26/17 08:19 76 135/88 (104) 97 Room Air 07/26/17 07:48 98.0 Orders Orders Complete Blood Count With Diff (07/26/17 08:04) Comprehensive Metabolic Panel (07/26/17 08:04) Lipase (07/26/17 08:04) Urinalysis - C+S If Indicated (07/26/17 08:04) Ct Abd/Pel W/O Iv Contrast (07/26/17 08:04) Iv Access Insert/Monitor (07/26/17 08:04) Ecg Monitoring (07/26/17 08:04) Oximetry (07/26/17 08:04) Morphine Inj (Morphine Inj) (07/26/17 08:15) Ondansetron Inj (Zofran Inj) (07/26/17 08:15) Sodium Chlor 0.9% 1000 Ml Inj (Ns 1000 M (07/26/17 08:04) Sodium Chloride 0.9% Flush (Ns Flush) (07/26/17 08:15) Ketorolac Inj (Toradol Inj) (07/26/17 08:15) Ed Discharge Order (07/26/17 10:29) Labs Laboratory Tests Test 07/26/17 08:05 White Blood Count 8.8 TH/MM3 Red Blood Count 5.62 MIL/MM3 Hemoglobin 16.3 GM/DL Hematocrit 47.9 % Mean Corpuscular Volume 85.3 FL Mean Corpuscular Hemoglobin 29.0 PG Mean Corpuscular Hemoglobin Concent 34.0 % Red Cell Distribution Width 13.6 % Platelet Count 215 TH/MM3 Mean Platelet Volume 8.0 FL Neutrophils (%) (Auto) 53.8 % Lymphocytes (%) (Auto) 35.1 % Monocytes (%) (Auto) 9.5 % Eosinophils (%) (Auto) 1.0 % Basophils (%) (Auto) 0.6 % Neutrophils # (Auto) 4.7 TH/MM3 Lymphocytes # (Auto) 3.1 TH/MM3 Monocytes # (Auto) 0.8 TH/MM3 Eosinophils # (Auto) 0.1 TH/MM3 Basophils # (Auto) 0.1 TH/MM3 CBC Comment DIFF FINAL Differential Comment Urine Color YELLOW Urine Turbidity CLEAR Urine pH 5.0 Urine Specific [place] 1.019 Urine Protein NEG mg/dL Urine Glucose (UA) NEG mg/dL Urine Ketones NEG mg/dL Urine Occult Blood LARGE Urine Nitrite NEG Urine Bilirubin NEG Urine Urobilinogen LESS THAN 2.0 MG/DL Urine Leukocyte Esterase NEG Urine RBC /hpf Urine WBC 2 /hpf Urine Bacteria RARE /hpf Urine Mucus FEW /lpf Microscopic Urinalysis Comment CULT NOT INDICATED Blood Urea Nitrogen 18 MG/DL Creatinine 1.12 MG/DL Random Glucose 158 MG/DL Total Protein 7.6 GM/DL Albumin 4.1 GM/DL Calcium Level 8.6 MG/DL Alkaline Phosphatase 82 U/L Aspartate Amino Transf (AST/SGOT) 15 U/L Alanine Aminotransferase (ALT/SGPT) 25 U/L Total Bilirubin 0.4 MG/DL Sodium Level 135 MEQ/L Potassium Level 4.0 MEQ/L Chloride Level 104 MEQ/L Carbon Dioxide Level 22.4 MEQ/L Anion Gap 9 MEQ/L Estimat Glomerular Filtration Rate 67 ML/MIN Lipase 175 U/L [facility] Medical Decision Making Medical Screen Exam Complete: Yes Emergency Medical Condition: Yes Medical Record Reviewed: Yes Interpretation(s) Laboratory Tests Test 07/26/17 08:05 White Blood Count 8.8 TH/MM3 Red Blood Count 5.62 MIL/MM3 Hemoglobin 16.3 GM/DL Hematocrit 47.9 % Mean Corpuscular Volume 85.3 FL Mean Corpuscular Hemoglobin 29.0 PG Mean Corpuscular Hemoglobin Concent 34.0 % Red Cell Distribution Width 13.6 % Platelet Count 215 TH/MM3 Mean Platelet Volume 8.0 FL Neutrophils (%) (Auto) 53.8 % Lymphocytes (%) (Auto) 35.1 % Monocytes (%) (Auto) 9.5 % Eosinophils (%) (Auto) 1.0 % Basophils (%) (Auto) 0.6 % Neutrophils # (Auto) 4.7 TH/MM3 Lymphocytes # (Auto) 3.1 TH/MM3 Monocytes # (Auto) 0.8 TH/MM3 Eosinophils # (Auto) 0.1 TH/MM3 Basophils # (Auto) 0.1 TH/MM3 CBC Comment DIFF FINAL Differential Comment Urine Color YELLOW Urine Turbidity CLEAR Urine pH 5.0 Urine Specific [place] 1.019 Urine Protein NEG mg/dL Urine Glucose (UA) NEG mg/dL Urine Ketones NEG mg/dL Urine Occult Blood LARGE Urine Nitrite NEG Urine Bilirubin NEG Urine Urobilinogen LESS THAN 2.0 MG/DL Urine Leukocyte Esterase NEG Urine RBC /hpf Urine WBC 2 /hpf Urine Bacteria RARE /hpf Urine Mucus FEW /lpf Microscopic Urinalysis Comment CULT NOT INDICATED Blood Urea Nitrogen 18 MG/DL Creatinine 1.12 MG/DL Random Glucose 158 MG/DL Total Protein 7.6 GM/DL Albumin 4.1 GM/DL Calcium Level 8.6 MG/DL Alkaline Phosphatase 82 U/L Aspartate Amino Transf (AST/SGOT) 15 U/L Alanine Aminotransferase (ALT/SGPT) 25 U/L Total Bilirubin 0.4 MG/DL Sodium Level 135 MEQ/L Potassium Level 4.0 MEQ/L Chloride Level 104 MEQ/L Carbon Dioxide Level 22.4 MEQ/L Anion Gap 9 MEQ/L Estimat Glomerular Filtration Rate 67 ML/MIN Lipase 175 U/L Last Impressions Abdomen/Pelvis CT 07/26/17 0804 Signed Impressions: Service Date/Time: Wednesday, July 26, 2017 09:28 - CONCLUSION: 1. 2 mm stone either within the intramural segment at the UVJ or within the urinary bladder itself. There is mild hydronephrosis and hydroureter on the right. No other renal stones observed. 2. Colonic diverticulosis. 3. Cholelithiasis. Jose De Los Santos Jr., MD Differential Diagnosis Differential diagnosis includes nephrolithiasis, hydronephrosis, pyelonephritis , atypical appendicitis, atypical cholecystitis, testicular torsion, epididymitis, UTI. Narrative Course IV was established, labs are drawn and sent, and the patient was placed on cardiac telemetry monitoring and continuous pulse oximetry monitoring. The patient was administered morphine, Toradol, Zofran, and IV fluids. UA was sent to lab. Noncontrast CT of the abdomen and pelvis was ordered to evaluate for nephrolithiasis. UA reveals innumerable RBCs, creatinine is normal. CT reveals 2 mm stone within the intraluminal segment at the UVJ or within the urinary bladder, mild hydronephrosis and hydroureter on the right. Colonic diverticulosis and cholelithiasis. The patient appears to have a 2 mm stone with hematuria. The patient was reevaluated, his pain has significantly improved. Patient will be discharged home with pain medications and is advised to follow-up with urology. Return if symptoms worsen or progress. Diagnosis Primary Impression: Nephrolithiasis Patient Instructions: General Instructions Additional Instructions: Please provide the patient a copy of his CT results and lab results at discharge. Follow-up with your primary physician. Follow-up with urology. Please provide the patient a strainer at discharge. Return if symptoms worsen or progress. Med/Other Pt SpecificInfo: Prescription(s) given Scripts Ibuprofen (Ibuprofen) 400 Mg Tab 400 MG PO Q6H Y for PAIN SCALE 1 TO 10, #20 TAB 0 Refills Prov: Krishna Melara MD 07/26/17 Hydrocodone-Acetaminophen ([place]) 5-325 mg Tab 1 TAB PO Q6H Y for PAIN, #15 TAB 0 Refills Prov: Krishna Melara MD 07/26/17 Tamsulosin (Flomax) 0.4 Mg Cap 0.4 MG PO HS for Manage Prostate Problems for 7 Days, #30 CAP 0 Refills Prov: Krishna Melara MD 07/26/17 Disposition: 01 DISCHARGE HOME Condition: Stable Krishna Melara MD Jul 26, 2017 08:08
[2017-07-26] MEDS ORDERED: ONDANSETRON HCL 4 MG/2 ML VIAL IVP ONE (08:15)
[2017-07-26] MEDS ORDERED: SODIUM CHLORIDE 0.9% FLUSH 10 ML FLUSH IV FLUSH PRN (08:15)
[2017-07-26] MEDS ORDERED: KETOROLAC TROMETHAMINE 30 MG/ML (IVP) VIAL IVP ONE (08:15)
[2017-07-26] MEDS ORDERED: MORPHINE SULFATE 4 MG/ML INJ IV PUSH ONE (08:15)
[2017-07-26 08:19] VITALS: BP 135/88; PULSE 76; RESP 15; O2SAT 97
[2017-07-26 08:30] VITALS: RESP 14
[2017-07-26 08:56] LABS: AUTOMATED NEUTROPHIL # 4.7 TH/MM3 (1.8-7.7); BASOPHIL # 0.1 TH/MM3 (0-0.2); BASOPHIL % 0.6 % (0.0-2.0); EOSINOPHIL # 0.1 TH/MM3 (0-0.4); HEMATOCRIT 47.9 % (39.0-51.0); HEMOGLOBIN 16.3 GM/DL (13.0-17.0); LYMPH % 35.1 % (9.0-44.0); LYMPHOCYTE # 3.1 TH/MM3 (1.0-4.8); MEAN CELL VOLUME 85.3 FL (80.0-100.0); MONO % 9.5 % (0.0-8.0); MONOCYTE # 0.8 TH/MM3 (0-0.9); NEUT % 53.8 % (16.0-70.0); PLATELET COUNT 215 TH/MM3 (150-450); RED BLOOD COUNT 5.62 MIL/MM3 (4.50-5.90); RED CELL DISTRIBUTION WIDTH 13.6 % (11.6-17.2); WHITE BLOOD COUNT 8.8 TH/MM3 (4.0-11.0)
[2017-07-26 08:58] LABS: ALBUMIN 4.1 GM/DL (3.4-5.0); ALT (GPT) 25 U/L (12-78); AST (GOT) 15 U/L (15-37); BICARBONATE 22.4 MEQ/L (21.0-32.0); BLOOD UREA NITROGEN 18 MG/DL (7-18); CALCIUM 8.6 MG/DL (8.5-10.1); CHLORIDE 104 MEQ/L (98-107); CREATININE 1.12 MG/DL (0.60-1.30); GLOMERULAR FILTRATION RATE 67 ML/MIN (>89); GLUCOSE,RANDOM 158 MG/DL (74-106); LIPASE 175 U/L (73-393); SODIUM (NA) 135 MEQ/L (136-145)
[2017-07-26 09:00] LABS: ALKALINE PHOSPHATASE 82 U/L (45-117); TOTAL BILIRUBIN ADULT 0.4 MG/DL (0.2-1.0); TOTAL PROTEIN 7.6 GM/DL (6.4-8.2)
[2017-07-26 09:03] LABS: BACTERIA, URINE RARE /hpf; BILIRUBIN, URINE NEG (NEG); BLOOD, URINE LARGE (NEG); GLUCOSE,URINE NEG (NEG); KETONE, URINE NEG (NEG); MUCUS URINE FEW /lpf (OCC); NITRITE,URINE NEG (NEG); URINE COLOR YELLOW (YELLW/STRAW); URINE LEUKOCYTE ESTERASE NEG (NEG)
--- NOTE | 2017-07-26 10:03 | RADRPT ---
EXAM DATE/TIME: 07/26/2017 09:28 [facility] COMPARISON: CT ABDOMEN & PELVIS W/O CONTRAST, March 09, 2017, 1:38. INDICATIONS : Right flank pain. ORAL CONTRAST: No oral contrast ingested. RADIATION DOSE: 8.50 CTDIvol (mGy) MEDICAL HISTORY : Hypertension. SURGICAL HISTORY : None. ENCOUNTER: Initial ACUITY: 1 day PAIN SCALE: 5/10 LOCATION: Right flank TECHNIQUE: Volumetric scanning of the abdomen and pelvis was performed. Using automated exposure control and ad justment of the mA and/or kV according to patient size, radiation dose was kept as low as reasonably achievable to obtain optimal diagnostic quality images. DICOM format image data is available electro nically for review and comparison. FINDINGS: LOWER LUNGS: The visualized lower lungs are clear. LIVER: Homogeneous density without lesion. There is no dilation of the biliary tree. A rim calcified gallst one is seen within a decompressed gallbladder. SPLEEN: Normal size without lesion. PANCREAS: Within normal limits. KIDNEYS: Normal in size and shape. There is no mass . Mild hydronephrosis and hydroureter on the right. No re nal stones observed. Left kidney is unremarkable on this unenhanced study. ADRENAL GLANDS: Within normal limits. VASCULAR: There is no aortic aneurysm. BOWEL/MESENTERY: The stomach, small bowel, and colon demonstrate no acute abnormality. There is no free intraperitone al air or fluid. Scattered colonic diverticuli without acute inflammation. ABDOMINAL WALL: Within normal limits. RETROPERITONEUM: There is no lymphadenopathy. BLADDER: There is a 2 mm stone either within the intramural segment at the UVJ or within the urinary bladder i tself. The urinary bladder is otherwise unremarkable.. REPRODUCTIVE: Within normal limits. INGUINAL: There is no lymphadenopathy or hernia. MUSCULOSKELETAL: Within normal limits for patient age. CONCLUSION: 1. 2 mm stone either within the intramural segment at the UVJ or within the urinary bladder itself. T here is mild hydronephrosis and hydroureter on the right. No other renal stones observed. 2. Colonic diverticulosis. 3. Cholelithiasis. Jose De Los Santos Jr., MD on July 26, 2017 at 9:50 Board Certified Radiologist. This report was verified electronically.
[2017-07-26] MEDS ORDERED: TAMS5CAP PO (10:31)
[2017-07-26] MEDS ORDERED: IBUP400T20 PO (10:31)
[2017-07-26] MEDS ORDERED: NORC5TAB PO (10:31)
[2017-07-26 10:42] VITALS: BP 130/80
== END 2017-07-26 11:42 | disposition home or self-care (01) ==
LOC: NEPE 07:37
DX: N13.2 Hydronephrosis with renal and ureteral calculous obstruction (principal); I10 Essential (primary) hypertension; Z72.0 Tobacco use
CPT/HCPCS: 74176; 80053; 81001; 83690; 85025; 96361; 96374; 96375; 99285; J1885; J2270; J2405; J7030

== ENCOUNTER → 2017-08-31 | Outpatient (CLI) | payer OTHER ==
[~2017-08-31] MED LIST changes: +ASPI-516 CHEW; -ASPI81CH CHEW; -CYCL1TAB29 PO; +IBUP1TAB5 PO; +NORC5TAB PO; +TAMS5CAP PO
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
== END ==
LOC: HRAD 14:47
DX: M19.90 Unspecified osteoarthritis, unspecified site (principal)
CPT/HCPCS: 72050; 72110

== ENCOUNTER → 2017-09-15 | Outpatient (CLI) | payer OTHER ==
[~2017-09-15] MED LIST changes: +FAMO20TA2 PO
[2017-09-15 13:24] LABS: BASOPHIL # 0.1 TH/MM3 (0-0.2); BASOPHIL % 1.1 % (0.0-2.0); EOSINOPHIL # 0.1 TH/MM3 (0-0.4); EOSINOPHIL % 1.4 % (0.0-4.0); HEMATOCRIT 47.4 % (39.0-51.0); HEMO FLAGS DIFF FINAL; LYMPH % 42.2 % (9.0-44.0); LYMPHOCYTE # 2.7 TH/MM3 (1.0-4.8); MEAN CELL VOLUME 84.3 FL (80.0-100.0); MEAN CORPUSCULAR HEMOGLOBIN 29.2 PG (27.0-34.0); MEAN CORPUSCULAR HGB CONC 34.7 % (32.0-36.0); MONO % 9.4 % (0.0-8.0); NEUT % 45.9 % (16.0-70.0); PLATELET COUNT 220 TH/MM3 (150-450); RED BLOOD COUNT 5.63 MIL/MM3 (4.50-5.90); RED CELL DISTRIBUTION WIDTH 12.9 % (11.6-17.2); WHITE BLOOD COUNT 6.5 TH/MM3 (4.0-11.0)
[2017-09-15 13:52] LABS: ANION GAP 6 MEQ/L (5-15); AST (GOT) 18 U/L (15-37); BICARBONATE 28.1 MEQ/L (21.0-32.0); BLOOD UREA NITROGEN 12 MG/DL (7-18); CHLORIDE 102 MEQ/L (98-107); GLOMERULAR FILTRATION RATE 73 ML/MIN (>89); GLUCOSE,FASTING 126 MG/DL (74-99); POTASSIUM 4.2 MEQ/L (3.5-5.1); SODIUM (NA) 136 MEQ/L (136-145)
[2017-09-15 13:53] LABS: ALT (GPT) 24 U/L (12-78)
[2017-09-15 14:02] LABS: ALKALINE PHOSPHATASE 87 U/L (45-117); HDL CHOLESTEROL 39.6 MG/DL (40.0-60.0); LDL CHOLESTEROL 32 MG/DL (0-99); TOTAL BILIRUBIN ADULT 0.4 MG/DL (0.2-1.0)
[2017-09-15 16:52] LABS: HEMOGLOBIN A1a 0.9 %; HEMOGLOBIN Ao 84.1 %; HEMOGLOBIN LA1C 2.2 %; HEMOGLOBIN P3 3.9 %
== END ==
LOC: CLAB 12:57
DX: E03.9 Hypothyroidism, unspecified (principal); E78.5 Hyperlipidemia, unspecified; R97.20 Elevated prostate specific antigen [PSA]; D64.9 Anemia, unspecified; E11.9 Type 2 diabetes mellitus without complications; Z13.228 Encounter for screening for other metabolic disorders
CPT/HCPCS: 36415; 80053; 80061; 83036; 84153; 84443; 85025

== ENCOUNTER 2017-09-22 03:54 | Emergency (ER) | payer OTHER ==
[~2017-09-22] VITALS: Ht 170.2 cm; Wt 95.0 kg
[~2017-09-22 03:54] MED LIST changes: -FAMO20TA2 PO
[2017-09-22 03:57] VITALS: BP 166/93; PULSE 78; RESP 18; TEMP 98.4; O2SAT 98
--- NOTE | 2017-09-22 04:43 | PD ---
HPI Chief Complaint: Abdominal Pain Time Seen by Provider: 04:02 Travel History International Travel<30 days: No Contact w/Intl Traveler<30days: No Traveled to known affect area: No History of Present Illness HPI The patient is a 57 year old male who presents to the [facility] emergency department with a history of abdominal pain that he reports began around 5 PM yesterday. He reports that it began after he ate. It was his last meal. The patient reports that he is concerned that it may be related to his gallstone. He reports that this is the third time that he has had similar symptoms after eating. He reports that he did discuss this with his primary care physician, Dr. Mesa. He is in the process of being referred to a general surgeon for evaluation. The patient denies having any nausea, vomiting, or diarrhea associated with this. He reports that his last bowel movement was earlier today. He reports that his bowels have been somewhat irregular recently and that prior to his bowel movement yesterday he had not moved his bowels for 2-3 days. He denies having any blood in his stool or black or tarry stools. The patient reports that his abdominal pain is located in the upper aspect of the abdomen, midepigastric area is where he points. He reports that the pain as a burning sensation. He reports that the pain is been constant since 5 PM yesterday. He reports the pain is gradually increasing in severity. He reports that it is currently quite severe. On review of systems otherwise, the patient denies having any known recent fevers, cough, congestion, neck pain, chest pain, shortness of breath, urinary symptoms, or neurologic symptoms. Incidentally, the patient reports that he was diagnosed with a kidney stone in July of this year, however he reports that the pain is not similar. He has not followed up with the urologist regarding this. [facility] Past Medical History Narrative Medical The patient's past medical history is significant for hypertension, hyperlipidemia, kidney stone, gall stone. Cardiovascular Problems: Yes (HTN) High Cholesterol: Yes Diminished Hearing: No Hypertension: Yes Immunizations Current: Yes Past Surgical History Narrative Surgical The patient's past surgical history is significant for benign tumor removed from the scalp. Other Surgery: Yes (benign tumor removed ) Social History Alcohol Use: No Tobacco Use: Yes (less than 1 ppd) Substance Use: No Allergies-Medications (Allergen,Severity, Reaction): Coded Allergies: penicillin G (Verified Allergy, Severe, Anaphylaxis, 09/22/17) Reported Meds & Prescriptions Reported Meds & Active Scripts Active Flomax (Tamsulosin HCl) 0.4 Mg Cap 0.4 Mg PO HS 7 Days Reported Lisinopril-Hctz 20-12.5 Mg Tab 1 Tab PO DAILY Aspirin 81 Mg Chew 81 Mg CHEW DAILY Simvastatin 10 Mg Tab 10 Mg PO DAILY Review of Systems Except as stated in HPI: all other systems reviewed are Neg General / Constitutional: No: Fever Eyes: No: Visual changes HENT: No: Headaches Cardiovascular: No: Chest Pain or Discomfort Respiratory: No: Cough, Shortness of Breath Gastrointestinal: Positive: Abdominal Pain, Constipation, Changes in Bowel Habits, Indigestion, No: Nausea, Vomiting, Diarrhea, Hematemesis, Hematochezia, Loss of Appetite Genitourinary: No: Dysuria Musculoskeletal: No: Pain Skin: No Rash Neurologic: No: Weakness Psychiatric: No: Depression Endocrine: No: Polydipsia Hematologic/Lymphatic: No: Easy Bruising Physical Exam Narrative General: The patient is a well-developed well-nourished male in no acute distress. Head and Neck exam: Head is normocephalic atraumatic. Eyes: EOMI, pupils are equal round and reactive to light. Nose: Midline septum with pink mucous membranes Mouth: Dentition unremarkable. Moist mucus membranes. Posterior oropharynx is not erythematous. No tonsillar hypertrophy. Uvula midline. Airway patent. Neck: No palpable lymphadenopathy. No nuchal rigidity. No thyromegaly. Cardiovascular: Regular rate and rhythm without murmurs, gallops, or rubs. Lungs: Clear to auscultation bilaterally. No wheezes, rhonchi, or rales. Abdomen: Soft, with tenderness on palpation in the midepigastric area and bilateral upper quadrants of the abdomen, worse in the midepigastric area compared to other areas. The patient has a negative Teixeira's sign. The patient has no tenderness on palpation of McBurney's point. Normal bowel sounds are audible. No guarding, rebound, or rigidity. Extremities: No clubbing, cyanosis, or edema. 2+ pulses in all 4 extremities. No calf tenderness on palpation. Back: No costovertebral angle tenderness to palpation. Neurologic Exam: Grossly nonfocal. Skin Exam: No rash noted. Intact skin that is warm and dry. Data Data Last Documented VS Vital Signs Date Time Temp Pulse Resp B/P (MAP) Pulse Ox O2 Delivery O2 Flow Rate FiO2 09/22/17 06:15 16 09/22/17 03:57 98.4 78 166/93 (117) 98 Room Air Orders Orders Complete Blood Count With Diff (09/22/17 04:34) Comprehensive Metabolic Panel (09/22/17 04:34) C-Reactive Protein (Crp) (09/22/17 04:34) Lipase (09/22/17 04:34) Urinalysis - C+S If Indicated (09/22/17 04:34) Magnesium (Mg) (09/22/17 04:34) Iv Access Insert/Monitor (09/22/17 04:34) Ecg Monitoring (09/22/17 04:34) Oximetry (09/22/17 04:34) Sodium Chlor 0.9% 1000 Ml Inj (Ns 1000 M (09/22/17 04:45) Ondansetron Inj (Zofran Inj) (09/22/17 04:45) Ketorolac Inj (Toradol Inj) (09/22/17 04:45) Pantoprazole Inj (Protonix Inj) (09/22/17 04:45) Us Abdomen Gallbladder (09/22/17 04:46) Labs Laboratory Tests Test 09/22/17 04:20 09/22/17 04:30 Urine Color YELLOW Urine Turbidity CLEAR Urine pH 5.5 Urine Specific [place] 1.025 Urine Protein NEG mg/dL Urine Glucose (UA) NEG mg/dL Urine Ketones NEG mg/dL Urine Occult Blood SMALL Urine Nitrite NEG Urine Bilirubin NEG Urine Urobilinogen 0.2 MG/DL Urine Leukocyte Esterase NEG Urine RBC 0-3 /hpf Urine WBC 0-2 /hpf Urine Bacteria NONE /hpf Microscopic Urinalysis Comment CULT NOT INDICATED White Blood Count 8.1 TH/MM3 Red Blood Count 5.52 MIL/MM3 Hemoglobin 15.9 GM/DL Hematocrit 46.4 % Mean Corpuscular Volume 84.1 FL Mean Corpuscular Hemoglobin 28.8 PG Mean Corpuscular Hemoglobin Concent 34.2 % Red Cell Distribution Width 13.1 % Platelet Count 217 TH/MM3 Mean Platelet Volume 8.0 FL Neutrophils (%) (Auto) 47.2 % Lymphocytes (%) (Auto) 43.1 % Monocytes (%) (Auto) 7.3 % Eosinophils (%) (Auto) 1.6 % Basophils (%) (Auto) 0.8 % Neutrophils # (Auto) 3.8 TH/MM3 Lymphocytes # (Auto) 3.5 TH/MM3 Monocytes # (Auto) 0.6 TH/MM3 Eosinophils # (Auto) 0.1 TH/MM3 Basophils # (Auto) 0.1 TH/MM3 CBC Comment DIFF FINAL Differential Comment Blood Urea Nitrogen 18 MG/DL Creatinine 0.94 MG/DL Random Glucose 118 MG/DL Total Protein 7.5 GM/DL Albumin 3.8 GM/DL Calcium Level 8.9 MG/DL Magnesium Level 2.0 MG/DL Alkaline Phosphatase 85 U/L Aspartate Amino Transf (AST/SGOT) 30 U/L Alanine Aminotransferase (ALT/SGPT) 25 U/L Total Bilirubin 0.3 MG/DL Sodium Level 135 MEQ/L Potassium Level 4.6 MEQ/L Chloride Level 105 MEQ/L Carbon Dioxide Level 24.1 MEQ/L Anion Gap 6 MEQ/L Estimat Glomerular Filtration Rate 82 ML/MIN C-Reactive Protein LESS THAN 0.29 MG/DL Lipase 168 U/L [facility] Medical Decision Making Medical Screen Exam Complete: Yes Emergency Medical Condition: Yes Medical Record Reviewed: Yes Interpretation(s) Last Impressions Gall Bladder Ultrasound 09/22/17 0446 Signed Impressions: Service Date/Time: Friday, September 22, 2017 05:52 - CONCLUSION: 1. Hepatomegaly and hepatic steatosis. 2. Cholelithiasis. The gallbladder wall is mildly thickened. This can be correlated with any clinical signs of cholecystitis. Juan David Kay MD Differential Diagnosis Biliary colic, versus acute cholecystitis, versus pancreatitis, versus peptic ulcer disease, versus acid reflux, versus gastritis Narrative Course During the course of the patients emergency department visit, the patients history, examination, and differential diagnosis were reviewed with the patient. The patient was placed on a quality assurance monitor with oximetry and frequent blood pressure monitoring. The patient had IV access obtained and blood work sent for analysis. An ultrasound of the gallbladder has been ordered. The patient was initially provided normal saline 1 L IV fluid bolus, Zofran 4 mg IV, Toradol 15 mg IV, Protonix 40 mg IV. The patients laboratory studies were reviewed and remarkable for a CBC that is within normal limits, CMP is remarkable for sodium of 135, GFR of 82, glucose 118, C-reactive protein is 0.29, lipase 168, urinalysis is unremarkable. Radiology studies were reviewed and remarkable for an ultrasound of the gallbladder that reveals hepatomegaly and hepatic steatosis, cholelithiasis, gallbladder wall is mildly thickened. This could be correlated with clinical findings to represent cholecystitis. The patient was reexamined at 6:50 AM. The patient was sleeping soundly. The patient was awakened and his abdominal examination repeated. The patient reports that the pain has resolved. His abdominal exam reveals a soft abdomen. No tenderness on palpation of any of the quadrants of the abdomen. No tenderness on McBurney's point, negative Teixeira's sign. Normal bowel sounds are audible. He no longer has any midepigastric pain on palpation either. In order to facilitate the patient's referral to a surgeon for consideration of laparoscopic cholecystectomy, the patient will be given the name of the surgeon on-call today for follow-up, . The patient is instructed on the importance of quitting smoking. The patient is instructed on the importance of avoiding fatty foods while he awaits follow-up with the surgeon. The patient is resting comfortably and feels better, is alert and in no distress. The patients results and examination findings were discussed with the patient. The repeat examination is unremarkable and benign. The history, exam, diagnostic testing, and current condition do not suggest any significant pathology to warrant further testing, continued ED treatment, admission, or surgical evaluation at this point. The vital signs have been stable. The patient does not have uncontrollable pain, intractable vomiting, or other significant symptoms. The patient's condition is stable and appropriate for discharge. The patient will pursue further outpatient evaluation with a primary care physician or other designated or consulting physician as indicated in the discharge instructions. The patient expressed understanding and was agreeable with this plan. Diagnosis Primary Impression: Biliary colic Additional Impression: Cholelithiasis Qualified Codes: K80.20 - Calculus of gallbladder without cholecystitis without obstruction Referrals: Xu Priec MD call for appointment Patient Instructions: Biliary Colic (ED), General Instructions Med/Other Pt SpecificInfo: Prescription(s) given Scripts Famotidine (Famotidine) 20 Mg Tab 20 MG PO BID, #60 TAB 0 Refills Prov: Anahi Chung MD 09/22/17 Disposition: 01 DISCHARGE HOME Condition: Stable Anahi Chung MD Sep 22, 2017 04:43
[2017-09-22] MEDS ORDERED: SODIUM CHLOR 0.9% 1000 ML INJ 1,000 ML IV ONE (04:45)
[2017-09-22] MEDS ORDERED: PANTOPRAZOLE SODIUM 40 MG VIAL IV PUSH ONE (04:45)
[2017-09-22] MEDS ORDERED: KETOROLAC TROMETHAMINE 30 MG/ML (IVP) VIAL IV PUSH ONE (04:45)
[2017-09-22] MEDS ORDERED: ONDANSETRON HCL 4 MG/2 ML VIAL IV ONE (04:45)
[2017-09-22 04:54] LABS: AUTOMATED NEUTROPHIL # 3.8 TH/MM3 (1.8-7.7); BASOPHIL # 0.1 TH/MM3 (0-0.2); BASOPHIL % 0.8 % (0.0-2.0); EOSINOPHIL # 0.1 TH/MM3 (0-0.4); EOSINOPHIL % 1.6 % (0.0-4.0); HEMATOCRIT 46.4 % (39.0-51.0); HEMOGLOBIN 15.9 GM/DL (13.0-17.0); LYMPH % 43.1 % (9.0-44.0); LYMPHOCYTE # 3.5 TH/MM3 (1.0-4.8); MEAN CELL VOLUME 84.1 FL (80.0-100.0); MEAN CORPUSCULAR HEMOGLOBIN 28.8 PG (27.0-34.0); MEAN CORPUSCULAR HGB CONC 34.2 % (32.0-36.0); MONO % 7.3 % (0.0-8.0); MONOCYTE # 0.6 TH/MM3 (0-0.9); NEUT % 47.2 % (16.0-70.0); PLATELET COUNT 217 TH/MM3 (150-450); RED BLOOD COUNT 5.52 MIL/MM3 (4.50-5.90); RED CELL DISTRIBUTION WIDTH 13.1 % (11.6-17.2); WHITE BLOOD COUNT 8.1 TH/MM3 (4.0-11.0)
[2017-09-22 04:57] LABS: BILIRUBIN, URINE NEG (NEG); BLOOD, URINE SMALL (NEG); GLUCOSE,URINE NEG (NEG); KETONE, URINE NEG (NEG); NITRITE,URINE NEG (NEG); PH, URINE 5.5 (5.0-8.5); URINE COLOR YELLOW (YELLW/STRAW); URINE LEUKOCYTE ESTERASE NEG (NEG)
[2017-09-22 04:59] LABS: RBC, URINE 0-3 /hpf (0-3); WBC, URINE 0-2 /hpf (0-5)
[2017-09-22 05:09] LABS: ALKALINE PHOSPHATASE 85 U/L (45-117); TOTAL BILIRUBIN ADULT 0.3 MG/DL (0.2-1.0); TOTAL PROTEIN 7.5 GM/DL (6.4-8.2)
[2017-09-22 05:10] LABS: ALBUMIN 3.8 GM/DL (3.4-5.0); ALT (GPT) 25 U/L (12-78); AST (GOT) 30 U/L (15-37); BICARBONATE 24.1 MEQ/L (21.0-32.0); BLOOD UREA NITROGEN 18 MG/DL (7-18); C-REACTIVE PROTEIN LESS THAN 0.29 MG/DL (0.00-0.30); CALCIUM 8.9 MG/DL (8.5-10.1); CHLORIDE 105 MEQ/L (98-107); CREATININE 0.94 MG/DL (0.60-1.30); GLOMERULAR FILTRATION RATE 82 ML/MIN (>89); GLUCOSE,RANDOM 118 MG/DL (74-106); LIPASE 168 U/L (73-393); SODIUM (NA) 135 MEQ/L (136-145)
[2017-09-22 06:15] VITALS: RESP 16
--- NOTE | 2017-09-22 06:39 | RADRPT ---
EXAM DATE/TIME: 09/22/2017 05:52 [facility] COMPARISON: No previous studies available for comparison. INDICATIONS : Right upper quadrant pain. MEDICAL HISTORY : Hypercholesterolemia. Hypertension. Renal calculi. Gallstone. Tobacco use. SURGICAL HISTORY : Benign tumor removed from scalp. ENCOUNTER: Initial ACUITY: 1 day PAIN SCORE: 8/10 LOCATION: Right upper quadrant MEASUREMENTS: LIVER: 19.3 cm length COMMON DUCT: 5 mm RIGHT KIDNEY: 10.9 x 5.3 x 4.9 cm FINDINGS: LIVER: The liver is enlarged and demonstrates diffuse increased echogenicity. No focal masses are seen. COMMON DUCT: No intraluminal mass or stone visualized. GALLBLADDER: Multiple gallstones are seen. These measure up to 2.0 cm. The gallbladder wall is thickened at 4 mm. PANCREAS: The pancreas is obscured by bowel gas. RIGHT KIDNEY: No evidence of hydronephrosis, stone, or mass. CONCLUSION: 1. Hepatomegaly and hepatic steatosis. 2. Cholelithiasis. The gallbladder wall is mildly thickened. This can be correlated with any clinica l signs of cholecystitis. Juan David Kay MD on September 22, 2017 at 6:35 Board Certified Radiologist. This report was verified electronically.
[2017-09-22] MEDS ORDERED: FAMO20TA2 PO (06:57)
== END 2017-09-22 07:11 | disposition home or self-care (01) ==
LOC: NEPE 03:54
DX: K80.50 Calculus of bile duct without cholangitis or cholecystitis without obstruction (principal); K80.20 Calculus of gallbladder without cholecystitis without obstruction; R16.0 Hepatomegaly, not elsewhere classified; K76.0 Fatty (change of) liver, not elsewhere classified; F17.200 Nicotine dependence, unspecified, uncomplicated; I10 Essential (primary) hypertension; E78.00 Pure hypercholesterolemia, unspecified; Z79.82 Long term (current) use of aspirin; Z79.899 Other long term (current) drug therapy
CPT/HCPCS: 76705; 80053; 81001; 83690; 83735; 85025; 86140; 96361; 96374; 96375; 99285; C9113; J1885; J2405; J7030